=== PATIENT | male | born 1970 | race African-American/Black ===

== ENCOUNTER 2016-12-21 21:08 | Emergency (ER) | payer OTHER ==
[~2016-12-21] VITALS: Ht 185.4 cm; Wt 158.8 kg
== END 2016-12-21 23:25 ==
LOC: ER 21:08
DX: I46.9 Cardiac arrest, cause unspecified (principal); I13.2 Hypertensive heart and chronic kidney disease with heart failure and with stage 5 chronic kidney disease, or end stage renal disease; E11.22 Type 2 diabetes mellitus with diabetic chronic kidney disease; N18.6 End stage renal disease; I50.9 Heart failure, unspecified; K21.9 Gastro-esophageal reflux disease without esophagitis; Z95.0 Presence of cardiac pacemaker